=== PATIENT | female | born 1970 | race Caucasian/White ===

== ENCOUNTER → 2020-05-08 13:28 | Outpatient (CLI) | payer MEDICARE ==
[2010-10-03 10:50] VITALS: BMI 29.6
== END | disposition home or self-care (01) ==
LOC: D.MRI 13:28
DX: M25.561 Pain in right knee (principal)

== ENCOUNTER → 2020-05-09 07:58 | Outpatient (CLI) | payer MEDICARE ==
[2010-10-03 10:50] VITALS: BMI 29.6
== END | disposition home or self-care (01) ==
LOC: D.MRI 07:58
DX: M25.561 Pain in right knee (principal)